=== PATIENT | female | born 1995 | race Caucasian/White ===

== ENCOUNTER 2023-09-18 23:29 | Emergency (ER) | payer MEDICAID, OTHER ==
[~2023-09-18] VITALS: Ht 165.1 cm; Wt 81.0 kg
[2023-09-18 23:33] VITALS: TEMP 97.9; O2SAT 98
[2023-09-19 00:39] LABS: BASOPHILS % 0.6 % (0.0-2.0); EOSINOPHILS % 2.5 % (0.0-5.0); HEMATOCRIT. 32.6 % (36.0-48.0); HEMOGLOBIN. 10.8 g/dL (12.0-16.0); LYMPHOCYTES % 27.4 % (20.0-50.0); MEAN CORPUSCULAR HGB CONC 33.2 g/dL (31.0-37.0); MEAN CORPUSCULAR VOLUME 81.4 fL (81.0-99.0); MEAN PLATELET VOLUME 7.8 fl (7.4-10.4); MONOCYTES % 5.1 % (2.0-8.0); NEUTROPHILS % 64.4 % (40.0-76.0); PLATELET 273 x1000/uL (130-400); RED CELL DISTRIBUTION WIDTH 12.8 % (11.6-14.6); WHITE BLOOD COUNT 11.6 x1000/uL (4.5-11.0)
[2023-09-19 00:51] LABS: LACTIC ACID 2.1 mmol/L (0.4-2.0)
[2023-09-19 00:52] LABS: ALANINE AMINOTRANSFERASE 12 IU/L (10-49); ALBUMIN 4.5 g/dL (3.2-4.8); ASPARTATE AMINOTRANSFERASE 16 IU/L (<34); BILIRUBIN TOTAL 0.2 mg/dL (0.1-1.0); CALCIUM 9.2 mg/dL (8.7-10.4); CARBON DIOXIDE 29 mEq/L (21-32); CHLORIDE 105 mEq/L (98-107); CREATININE 0.8 mg/dL (0.6-1.0); GLUCOSE 142 mg/dL (70-105); POTASSIUM 3.7 mEq/L (3.5-5.1); PROTEIN TOTAL 7.7 g/dL (6.0-8.3); SODIUM 141 mEq/L (136-145); UREA NITROGEN BLOOD 23 mg/dL (9-23)
[2023-09-19 00:54] LABS: ETHANOL BLOOD < 10 mg/dL (<10); TROPONIN I HIGH SENSITIVITY < 4 ng/L (3.0-34)
[2023-09-19 01:14] LABS: HCG SCREEN NEGATIVE
[2023-09-19] MEDS: LEVETIRACETAM 1000MG PREMIX 100 ML IV ONE (01:26)
[2023-09-19 03:47] VITALS: BP 132/76; PULSE 86; RESP 14
== END 2023-09-19 03:55 | disposition home or self-care (01) ==
LOC: ER 23:29
DX: R56.9 Unspecified convulsions (principal)
CPT/HCPCS: 99285; 80053; 80320; 84703; 83605; 85025; 84484; 36415; 71045; 70450; 93005; 96365; J1953; G0480